=== PATIENT | female | born 1995 ===

== ENCOUNTER 2021-10-06 13:59 | Outpatient (CLI) | payer SELFPAY ==
[2021-10-06 15:02] VITALS: BP 119/66; PULSE 90; RESP 16; TEMP 97.7
--- NOTE | 2021-10-13 07:34 | P.MSEPDOC ---
Presenting Problems - Arrival Data Date of Arrival on Unit: 10/06/21 Time of Arrival on Unit: 13:45 Mode of Transport: Stretcher - Complaint OB-Reason for Admission/Chief Complaint: Possible Onset of Labor Comment: pt complaints of contractions that started around noon today. Medical History - Information : 4 Para: 1 Term: 0 : 1 Abortions: Spontaneous or Elective: 2 Number of Living Children: 1 - Gestational Age Gestational Age by CHANDRA (wks/days): 27 Weeks and 0 Days Review of Systems - Review of Systems Constitutional: No problems Breast: No problems ENT: No problems Cardiovascular: No problems Respiratory: No problems Gastrointestinal: No problems Genitourinary: No problems Musculoskeletal: No problems Neurological: No problems Skin: No problems Vital Signs - Temperature Temperature: 97.7 F Temperature Source: Oral - Pulse Pulse Oximetery Pulse Rate: 90 Pulse Assessment Method: Pulse Oximetry - Respirations Respiratory Rate: 16 Oxygen Delivery Method: Room Air O2 Sat by Pulse Oximetry: 98 - Blood Pressure Right Arm Blood Pressure: 119/66 Blood Pressure Mean: 83 Blood Pressure Source: Automatic Cuff Medical Screen Scoring - Cervical Exam Membranes: Intact - Uterine Contractions Resting: Soft to palpation - Assessment - Baby A Baseline FHR: 150 Heart Rate - NICHD Category: Category I (Normal) Physician Notification - Physician Notified Physician Notified Date: 10/06/21 Physician Notified Time: 14:25 Physician: Sallie Madrid Order Received: Yes - Notification Comment Comment: check patients cervix and d/c if closed thick and high Maternal Triage Index - Maternal Triage Index Presenting for scheduled procedure w/no complaint: No - Stat/Priority 1 Stat Priority 1: No - Urgent/Priority 2 Urgent Priority 2: No - Prompt/Priority 3 Prompt Priority 3: No - Non-Urgent/Priority 4 Non-Urgent Priority 4: Yes Criteria Met for Priority 4: pt complaints of contractions that started at noon Disposition - Disposition OB Disposition: Physician follow up in office, Discharge to home Discharge Date: 10/06/21 Discharge Time: 14:45 I agree with the RN Medical Screening Exam: Yes Case reviewed; plan agreed upon as documented in EMR&OBIX.: Yes Diagnosis: FALSE LABOR BEFORE 37 COMPLETED WEEKS OF GEST, THIRD TRI
== END 2021-10-06 14:45 | disposition home or self-care (01) ==
LOC: FBPOP 13:59
PROVIDERS: ATTEND Obstetrics & Gynecology
DX: O47.02 False labor before 37 completed weeks of gestation, second trimester (principal); Z3A.27 27 weeks gestation of pregnancy
CPT/HCPCS: 99213